=== PATIENT | female | born 1950 | race Hispanic/Latino ===

== ENCOUNTER → 2022-10-16 | Outpatient (CLI) | payer MEDICARE | END | disposition home or self-care (01) | LOC: RAH 13:25 | PROVIDERS: ATTEND Internal Medicine Gastroenterology | DX: K21.9 Gastro-esophageal reflux disease without esophagitis (principal); R13.13 Dysphagia, pharyngeal phase; K57.30 Diverticulosis of large intestine without perforation or abscess without bleeding; D12.9 Benign neoplasm of anus and anal canal; Z98.890 Other specified postprocedural states | CPT/HCPCS: 74230; 92611 ==